=== PATIENT | male | born 1995 | race American Indian/Alaskan Native ===

== ENCOUNTER 2022-05-26 16:44 | Emergency (ER) | payer OTHER ==
[2022-05-26 17:11] VITALS: BP 127/80
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
== END 2022-05-26 20:15 | disposition home or self-care (01) ==
LOC: ED 16:44
DX: S83.92XA Sprain of unspecified site of left knee, initial encounter (principal); X58.XXXA Exposure to other specified factors, initial encounter; Y93.89 Activity, other specified; Y92.89 Other specified places as the place of occurrence of the external cause; Y99.8 Other external cause status
CPT/HCPCS: 99282